=== PATIENT | male | born 1990 | race Caucasian/White ===

== ENCOUNTER → 2018-03-26 09:12 | Outpatient (CLI) | payer MEDICAID, SELFPAY ==
[2018-03-26 10:44] LABS: Free T3, Triiodothyronine Free 3.66 pg/mL (2.77-5.27); Free T4, Direct Thyroxine 0.85 ng/dL (0.78-2.19)
[2018-03-26 10:57] LABS: Thyroid Stimulating Hormone 0.19 uIU/mL (0.47-4.68)
== END ==
PROVIDERS: Visit Provider Internal Medicine
DX: E03.9 Hypothyroidism, unspecified (principal)
CPT/HCPCS: 36415; 84439; 84443; 84481

== ENCOUNTER → 2018-05-21 14:46 | Outpatient (CLI) | payer MEDICAID, SELFPAY ==
[2018-05-21 16:55] LABS: TSH w/ Reflex to FT4 0.58 uIU/mL (0.47-4.68)
== END ==
PROVIDERS: Visit Provider Family Medicine
DX: E03.9 Hypothyroidism, unspecified (principal)
CPT/HCPCS: 36415; 84443

== ENCOUNTER 2018-05-28 14:27 | Emergency (ER) | payer MEDICAID, SELFPAY ==
[2018-05-28 14:34] VITALS: BP 118/78; PULSE 63; RESP 18; TEMP 37; O2SAT 98; BMI 39.1
--- NOTE | 2018-05-28 15:02 | ED_ITS ---
HPI - Chest Pain General Chief Complaint: Chest Pain Stated Complaint: Chest pain, shooting pain down L arm Time Seen by Provider: 05/28/18 14:40 Source: patient Mode of arrival: ambulatory Limitations: no limitations History of Present Illness HPI narrative: 28M with hx of anxiety, depression and hyperlipidemia presents with the chief complaint of a sudden onset sharp and stabbing left shoulder pain that lasted approximately 1 sec. He denies associated symptoms such as dizziness, weakness or lightheadedness. He denies any significant chest pain or shortness of breath. He denies recent travel or injury. He has had no nausea , vomiting or diarrhea. He states that an hour so later he had a brief episode of some pain on his left-sided ribs which lasts a few seconds itself. He denies any ongoing symptoms. He does have a strong family history of premature from coronary artery disease and has a concern that this may be his heart and his visit MD complaint: chest pain Onset (ago): hour(s) Duration: now resolved Onset: during rest Pain location: substernal Severity: mild Quality: sharp Pain radiation: none Relieving factors: nothing Exacerbating factors: nothing Treatments prior to arrival chest pain: none Related Data Home Medications Medication Instructions Recorded Confirmed Little Yellow Pill 1 tab PO DAILY 05/28/18 05/28/18 atorvastatin 80 mg PO QPM 05/28/18 05/28/18 citalopram 40 mg PO QPM 05/28/18 05/28/18 Previous Rx's Medication Instructions Recorded clonazepam 0.5 mg tablet 0.5 mg PO DAILY #30 tab 05/21/18 lactobacillus combination no.8 3 3,000 mmu cells PO DAILY #90 cap 05/21/18 billion cell capsule levothyroxine 88 mcg tablet 88 mcg PO DAILY #90 tab 05/26/18 Allergies Allergy/AdvReac Type Severity Reaction Status Date / Time No Known Drug Allergies Allergy Verified 05/28/18 14:39 Review of Systems Review of Systems All systems reviewed & are unremarkable except as noted in HPI and below Constitutional Denies chills, Denies fever(s), Denies lethargy and Denies weakness Eyes Denies change in vision, Denies eye discharge, Denies irritation and Denies loss of vision ENT Ears, Nose, Mouth, and Throat: Denies change in voice, Denies neck pain and Denies sore throat Cardiovascular Reports chest pain, Denies irregular heart rhythm, Denies lightheadedness, Denies palpitations, Denies dyspnea, Denies dyspnea on exertion and Denies orthopnea Respiratory Denies cough, Denies dyspnea, Denies dyspnea on exertion and Denies wheezing Gastrointestinal Gastrointestinal: Denies abdominal pain, Denies change in bowel habits, Denies diarrhea, Denies nausea and Denies vomiting Genitourinary Denies hematuria, Denies flank pain, Denies urinary incontinence and Denies urinary urgency Musculoskeletal Denies neck pain Integumentary/Breasts Denies pruritus, Denies erythema, Denies rash and Denies wounds Neurologic Denies confusion, Denies loss of vision and Denies weakness Psychiatric Denies anxiety, Denies confusion, Denies depression, Denies homicidal ideation and Denies suicidal ideation Endocrine Denies palpitations Hematologic/Lymphatic Denies easy bruising Allergic/Immunologic Denies wheezing PFSH Medical History Hyperlipidemia Anxiety Hypothyroidism (06/17/17) Morbid obesity with body mass index (BMI) of 40.0 to 44.9 in adult (06/17/17) Family History Other Family history of premature CAD Social History marital status: unmarried,single number of children: 0 education level: high school occupational status: employed Smoking Status: Former smoker alcohol intake: current (rare) substance use type: does not use Exam Narrative Exam Narrative: 28-year-old male resting comfortably in no obvious distress Initial Vital Signs Initial Vital Signs: Vital Signs Temperature 98.6 F 05/28/18 14:34 Pulse Rate 63 05/28/18 14:34 Respiratory Rate 18 05/28/18 14:34 Blood Pressure 118/78 05/28/18 14:34 Pulse Oximetry 98 05/28/18 14:34 Const General: cooperative and well developed Nutritional Appearance: obese Orientation: alert, awake, oriented x3 and not confused HENFL Head: normocephalic and atraumatic Ears: external ears normal and TM's normal bilaterally Nose: external nose normal and No nasal discharge Face and sinus: sinuses nontender, face symmetric, no sinus tenderness and No dry mucous membranes Mouth: oral mucosae normal and moist mucous membranes Teeth and gingiva: dentition normal Throat: tonsils normal and uvula midline Eyes General: appearance normal, both eyes and all related structures Eyelids: eyelids normal Conjunctivae: conjunctivae normal Sclera: sclerae normal Pupils: PERRL EOM: EOM intact bilaterally Chest Chest: normal inspection of the chest Resp Effort & Inspection: normal respiratory effort, able to speak in complete sentences, no respiratory distress and no use of accessory muscles Auscultation: clear to auscultation bilaterally, no rales, no rhonchi and no wheezes Cardio Rate: regular rate Rhythm: regular rhythm Heart Sounds: no click, no gallops, no murmurs and no rubs Pulses: normal peripheral pulses GI Inspection: non-distended Palpation: soft, no hepatosplenomegaly, No guarding, No pulsatile mass and No tender Auscultation: normal bowel sounds Back/Spine/Pelvis Back: No CVA tenderness Cervical Spine: cervical ROM normal and No pain with cervical ROM Thoracic/Lumbar Spine: thoracic and lumbar spine normal to inspection Skin General: no rashes or lesions noted, No jaundice and No petechiae Extrem General: full ROM, no clubbing, cyanosis or edema, no pedal edema and no calf tenderness Course Orders Ordered: ED Orders 05/28/18 15:09 XR chest 2V Stat 05/28/18 15:14 Basic Metabolic Panel Stat Complete Blood Count AUTO DIFF Stat Troponin I Stat Vital Signs - 8 hr 05/28/18 14:34 05/28/18 15:48 Temperature 98.6 F Pulse Rate 63 64 Respiratory Rate 18 16 Blood Pressure 118/78 Blood Pressure [Left Arm] 117/79 Pulse Oximetry 98 98 MDM - Chest Pain Differential Diagnosis Likely pneumothorax, stable angina, unstable angina pectoris, atypical chest pain, st elevation myocardial infarction, chest pain and biliary colic Medical Records Data Attestation: I reviewed the patient's medical records. Lab Data Attestation: I reviewed the patient's lab results. Result diagrams: 05/28/18 15:14 05/28/18 15:14 Lab Results 05/28/18 05/28/18 Range/Units 15:14 15:14 WBC 7.9 (4.5-11.0) X10^3/uL RBC 5.06 (4.5-5.9) X10^6/uL Hgb 15.0 (13.5-17.5) g/dL Hct 43.7 (41-53) % MCV 86.4 (80-100) fL MCH 29.7 (26-34) PG MCHC 34.4 (30-36) % RDW 13.6 (11.6-14.8) % Plt Count 233 (150-400) X10^3/uL Neut % (Auto) 45.8 L (50-75) % Lymph % (Auto) 44.4 H (25-40) % [place] % (Auto) 7.3 (3-14) % Eos % (Auto) 1.7 L (2-4) % Baso % (Auto) 0.8 (0-2) % Neut # (Auto) 3600 (6973-9831) /uL Sodium 143 (137-145) mmol/L Potassium 4.1 (3.4-5.1) mmol/L Chloride 101 (98-107) mmol/L Carbon Dioxide 28 (22-32) mmol/L BUN 13 (9-20) mg/dL Creatinine 0.80 (0.66-1.25) mg/dL Estimated GFR > 60.0 (>60) mL/min BUN/Creatinine Ratio 16.3 (6-22) Glucose 85 (70-100) mg/dL Calcium 9.8 (8.4-10.2) mg/dL Troponin I < 0.012 (0.01-0.034) ng/mL Imaging Data Chest x-ray: Radiologist's impression: [address] [address] XRay Report Signed Patient: Arie Chowdhury RMR#: [id number] : 1990Acct:[id number] Age/Sex: 28 MDate of Service: 05/28/18 Loc: ED Accession Number: [id number] Procedure: XR chest 2V Ordering Provider: Tal Hodge D.O. PROCEDURE: XR CHEST 2V INDICATIONS: chest pain TECHNIQUE: 2 views of the chest were acquired. COMPARISON: None. FINDINGS: Surgical changes and devices: None. Lungs and pleura: Increased lung markings are evident within the bilateral infrahilar regions, which is not definitely confirmed on the lateral view. No lobar consolidation, large effusion, or pneumothorax is evident. Mediastinum: Mediastinal contours are normal. Heart size is normal. Bones and chest wall: No suspicious bony abnormalities. Soft tissues appear unremarkable. IMPRESSION: Prominent infrahilar interstitial markings are of uncertain etiology and may be within normal limits. Please correlate clinically to exclude viral bronchiolitis. Dictated by: Vladimir Zhang M.D. on 05/28/2018 at 14:38 Approved by: Vladimir Zhang M.D. on 05/28/2018 at 14:41 ECG Data Attestation: I personally reviewed and interpreted this ECG as follows: Prior ECG tracings: not available for review Interpretation: EKG is normal sinus rhythm and free of any signs of ischemia or ectopy. MDM Narrative Medical decision making narrative: Ischemic heart disease considered but description of pain is not classic for an ischemic presentation. He describes a sharp and stabbing pain which was very brief and in the absence of other more classic symptoms. His EKG shows no changes, troponin is normal and patient is asymptomatic for duration of his visit. Discharge Plan Departure Patient Disposition: Home Clinical Impression: Atypical chest pain Discharge Date/Time: 05/28/18 16:54 Instructions: DI for Atypical Chest Pain Activity Restrictions/Additional Instructions: *You have been diagnosed with [atypical chest pain ] *What to do: * continue to take medications as directed *Follow up with your primary care provider in 2-3 days, call for an appointment. Let them know you were seen in the Emergency Department and that we ask that you be seen in follow up *Return to ER if you should have any new, worsening or concerning symptoms Prescriptions: No Action levothyroxine 88 mcg tablet 88 mcg PO DAILY Qty: 90 RF: 3 lactobacillus combination no.8 [Adult Probiotic] 3 billion cell capsule 3,000 mmu cells PO DAILY Qty: 90 RF: 0 clonazepam 0.5 mg tablet 0.5 mg PO DAILY Qty: 30 RF: 2 atorvastatin 80 mg tablet 80 mg PO QPM RF: 0 citalopram 40 mg tablet 40 mg PO QPM RF: 0 Little Yellow Pill 1 tab PO DAILY RF: 0 Referrals: Marcus Andrews MD [Primary Care Provider] -
--- NOTE | 2018-05-28 15:09 | DI.RAD.S_ITS ---
PROCEDURE: XR CHEST 2V INDICATIONS: chest pain TECHNIQUE: 2 views of the chest were acquired. COMPARISON: None. FINDINGS: Surgical changes and devices: None. Lungs and pleura: Increased lung markings are evident within the bilateral infrahilar regions, which is not definitely confirmed on the lateral view. No lobar consolidation, large effusion, or pneumothorax is evident. Mediastinum: Mediastinal contours are normal. Heart size is normal. Bones and chest wall: No suspicious bony abnormalities. Soft tissues appear unremarkable. IMPRESSION: Prominent infrahilar interstitial markings are of uncertain etiology and may be within normal limits. Please correlate clinically to exclude viral bronchiolitis. Dictated by: Vladimir Zhang M.D. on 05/28/2018 at 14:38 Approved by: Vladimir Zhang M.D. on 05/28/2018 at 14:41
[2018-05-28 15:48] VITALS: BP 117/79; PULSE 64; RESP 16; O2SAT 98
[2018-05-28 16:06] LABS: Add Manual Diff / Slide Review NO; Basophils Percent Auto 0.8 % (0-2); Eosinophils Percent Auto 1.7 % (2-4); Hematocrit 43.7 % (41-53); Lymphocytes Percent Auto 44.4 % (25-40); Mean Corpuscular HGB Conc 34.4 % (30-36); Mean Corpuscular Hemoglobin 29.7 PG (26-34); Mean Corpuscular Volume 86.4 fL (80-100); Monocytes Percent Auto 7.3 % (3-14); Neutrophils Absolute Auto 3600 /uL (3000-5900); Neutrophils Percent Auto 45.8 % (50-75); Platelet Count 233 X10^3/uL (150-400); Red Blood Cell Count 5.06 X10^6/uL (4.5-5.9); Red Cell Distribution Width 13.6 % (11.6-14.8); White Blood Cell Count 7.9 X10^3/uL (4.5-11.0)
[2018-05-28 16:17] LABS: BUN Creatinine Ratio 16.3 (6-22); Blood Urea Nitrogen 13 mg/dL (9-20); Calcium 9.8 mg/dL (8.4-10.2); Carbon Dioxide 28 mmol/L (22-32); Chloride 101 mmol/L (98-107); Estimated Glomerular Filt Rate > 60.0 mL/min (>60); Glucose 85 mg/dL (70-100); HEMOLYSIS 25 (0-50); Potassium 4.1 mmol/L (3.4-5.1); Sodium 143 mmol/L (137-145)
[2018-05-28 16:29] LABS: Troponin I < 0.012 ng/mL (0.01-0.034)
[2018-05-28 16:52] VITALS: BP 121/76; PULSE 57; RESP 15; TEMP 36.5; O2SAT 97
== END 2018-05-28 16:54 | disposition home or self-care (01) ==
PROVIDERS: Emergency Provider Emergency Medicine; Family Provider Family Medicine; PCP Family Medicine
DX: R07.89 Other chest pain (principal)
CPT/HCPCS: 36591; 71046; 80048; 84484; 85025; 93005; 99282; 99285

== ENCOUNTER → 2018-12-27 07:06 | Outpatient (CLI) | payer OTHER, MEDICAID, SELFPAY ==
[2018-12-27 07:49] LABS: Alanine Aminotransferase 35 IU/L (21-72); Albumin 4.6 g/dL (3.5-5.0); Albumin Globulin Ratio 1.5 (1.0-2.8); Alkaline Phosphatase 61 U/L (38-126); Aspartate Aminotransferase 27 IU/L (17-59); BUN Creatinine Ratio 17.1 (6-22); Bilirubin Total 0.9 mg/dL (0.2-1.3); Blood Urea Nitrogen 12 mg/dL (9-20); Calcium 10.1 mg/dL (8.4-10.2); Carbon Dioxide 31 mmol/L (22-32); Chloride 102 mmol/L (98-107); Cholesterol 225 mg/dL (140-199); Estimated Glomerular Filt Rate > 60.0 mL/min (>60); Glucose 105 mg/dL (70-100); HDL Cholesterol 34 mg/dL (40-60); HEMOLYSIS < 15 (0-50); LDL Cholesterol Calculated 168 mg/dL (<100); Potassium 4.8 mmol/L (3.4-5.1); Sodium 142 mmol/L (137-145); Total Protein 7.6 g/dL (6.3-8.2); Triglycerides 113 mg/dL (35-150)
[2018-12-27 08:54] LABS: Thyroid Stimulating Hormone 0.29 uIU/mL (0.47-4.68)
== END ==
PROVIDERS: PCP Family Medicine; Visit Provider Family Medicine
DX: E03.9 Hypothyroidism, unspecified (principal); E66.01 Morbid (severe) obesity due to excess calories; E78.5 Hyperlipidemia, unspecified; Z68.41 Body mass index [BMI] 40.0-44.9, adult; Z82.49 Family history of ischemic heart disease and other diseases of the circulatory system
CPT/HCPCS: 36415; 80053; 80061; 84443

== ENCOUNTER 2019-02-15 14:22 | Emergency (ER) | payer OTHER, SELFPAY ==
[2019-02-15 14:25] VITALS: BP 144/89; PULSE 70; RESP 23; TEMP 37.2; O2SAT 99; BMI 36.3
[2019-02-15 14:30] VITALS: BP 140/78; PULSE 82; RESP 18; O2SAT 100
--- NOTE | 2019-02-15 14:33 | DI.RAD.S_ITS ---
PROCEDURE: XR CHEST 1V INDICATIONS: Chest pain TECHNIQUE: One view of the chest was acquired. COMPARISON: [facility], CR, XR CHEST 2V, 05/28/2018, 15:19. FINDINGS: Surgical changes and devices: None. Lungs and pleura: Lungs are clear. No pleural effusions or pneumothorax. Mediastinum: Mediastinal contours appear normal. Heart size is normal. Bones and chest wall: No suspicious bony lesions. Overlying soft tissues appear unremarkable. IMPRESSION: 1. No acute cardiopulmonary disease. Dictated by: Jean-Pierre Smith M.D. on 02/15/2019 at 15:24 Approved by: Jean-Pierre Smith M.D. on 02/15/2019 at 15:25
--- NOTE | 2019-02-15 14:40 | ED.CHESTPAIN ---
HPI - Chest Pain <LEELEE Amaya - Last Filed: 02/15/19 21:01> General Chief Complaint: Chest Pain Stated Complaint: heart attack symptoms, sent from pcp Time Seen by Provider: 02/15/19 14:23 Source: patient Mode of arrival: ambulatory Limitations: no limitations History of Present Illness HPI narrative: 28-year-old male with a history of anxiety and high cholesterol, presents emergency department complaining of left-sided chest pain that 3 nights ago which awoke him from his sleep. He states it was a 9/10 sharp and aching pain that lasted a few hours. Denies aggravating or alleviating symptoms. States that he is pain free right now but he called his doctor to explain the symptoms and was told to come to the emergency department immediately. Patient denies any diaphoresis, shortness of breath, chest pain at this time, abdominal pain, nausea, vomiting, change in bowel or bladder problems, or syncope. He also denies fevers or chills. MD complaint: chest pain Duration: now resolved Onset: during rest Pain location: left chest Severity: severe Quality: aching Relieving factors: nothing Exacerbating factors: nothing Related Data Home Medications Medication Instructions Recorded Confirmed Adult Probiotic 3,000 mmu cells PO QPM 02/15/19 02/15/19 Previous Rx's Medication Instructions Recorded atorvastatin 80 mg tablet 80 mg PO QPM #90 tab 07/21/18 citalopram 40 mg tablet 40 mg PO QPM #90 tab 09/09/18 levothyroxine 75 mcg tablet 75 mcg PO DAILY #30 tab 12/27/18 clonazepam 1 mg tablet 1 mg PO DAILY #30 tab 02/08/19 Allergies Allergy/AdvReac Type Severity Reaction Status Date / Time No Known Drug Allergies Allergy Verified 02/15/19 14:29 Review of Systems <LEELEE Amaya - Last Filed: 02/15/19 21:01> Review of Systems REVIEW OF SYSTEMS: GENERAL: Denies fever, chills, malaise, or wt. loss. HENT: No head trauma, hearing loss, rhinorrhea, epistaxis, sinus pressure, sore throat, or dysphagia. EYES: No loss of vision, double vision, eye pain, or irritation. CARDIOVASCULAR: Complains of chest pain 3 days ago, see HPI. Denies palpitations or orthopnea. RESPIRATORY: No shortness of breath, cough, or wheeze. GASTROINTESTINAL: No change in appetite, nausea, vomiting, stool changes, or melena. GENITOURINARY: No flank pain, urinary incontinence, hesitancy, frequency, or dysuria. No vaginal discharge or dyspareunia. MUSCULOSKELETAL: No pain, weakness, or deformities. INTEGUMENTARY: No rash, lesions, or pruritus. NEURO: No numbness, tingling, memory loss, confusion, or headaches. PSYCH: Reports history of anxiety, see HPI. ENDOCRINOLOGY: No hair loss of temperature intolerance. HEMATOLOGY: No easy bruising. LYMPHATIC: No lymphadenopathy. PFSH <LEELEE Amaya - Last Filed: 02/15/19 21:01> Medical History Hyperlipidemia Anxiety Hypothyroidism (06/17/17) Morbid obesity with body mass index (BMI) of 40.0 to 44.9 in adult (06/17/17) Family History Other Family history of premature CAD Social History marital status: unmarried,single number of children: 0 education level: high school occupational status: employed Smoking Status: Former smoker alcohol intake: current (rare) substance use type: does not use Family History Other Family history of premature CAD Social History marital status: unmarried,single number of children: 0 education level: high school occupational status: employed Smoking Status: Former smoker alcohol intake: current (rare) substance use type: does not use Exam <LEELEE Amaya - Last Filed: 02/15/19 21:01> Initial Vital Signs Initial Vital Signs: Vital Signs Temperature 98.9 F 02/15/19 14:25 Pulse Rate 70 02/15/19 14:25 Respiratory Rate 23 02/15/19 14:25 Blood Pressure 144/89 H 02/15/19 14:25 Pulse Oximetry 99 02/15/19 14:25 PHYSICAL EXAMINATION: GENERAL: Patient is an obese male, well groomed, alert, and cooperative. Answers questions promptly and appropriately. Appears anxious during history and exam. Vital signs noted. HENT: Normocephalic, atraumatic.. Pharynx without erythema. EYES: PERRLA, conjunctiva pink, sclera white, no periorbital swelling. LYMPH: No lymphadenopathy. CHEST: Normal to inspection and without deformities. CARDIOVASCULAR: S1 and S2 sounds normal. Regular rate and rhythm, no murmurs, clicks, or bruits. No pedal edema. RESPIRATORY: Normal respiratory rate, trachea midline, airway patent. No stridor, nasal flaring or accessory muscle use. Lungs are clear in all [place] without wheeze, rhonchi, or crackles. GASTROINTESTINAL: Bowel sounds normoactive. Abdomen is soft and non-tender. No organomegaly. MUSCULOSKELETAL: Normal gait and coordination. Equal tone and mass bilaterally. No spinal tenderness or deformities. EXTREMITIES: CMS intact. Moves all extremities. SKIN: Warm, dry, soft, appropriate color for ethnicity. No lesions, rashes, or wounds. NEURO: Alert and Oriented X 3. Good coordination. No ataxia, or sensory deficits, or cognitive issues. PSYCH: Anxious affect. <Tal Hodge DO - Last Filed: 02/19/19 04:03> Initial Vital Signs Initial Vital Signs: Vital Signs Temperature 98.9 F 02/15/19 14:25 Pulse Rate 70 02/15/19 14:25 Respiratory Rate 23 02/15/19 14:25 Blood Pressure 144/89 H 02/15/19 14:25 Pulse Oximetry 99 02/15/19 14:25 Scores <LEELEE Amaya - Last Filed: 02/15/19 21:01> HEART Score Heart Score history: Slightly Suspicious Heart Score EKG: Normal Heart Score Age: < 45 years old Heart Score risk factors: 1-2 risk factors Heart Score troponin: < or = to normal limit Heart Score Total: 1 Course <LEELEE Amaya - Last Filed: 02/15/19 21:01> Course Narrative: Throughout the entire emergency department stay, patient continued to deny chest pain or shortness of breath. She was up walking around in going to the bathroom, continued to deny chest pain symptoms. Orders Ordered: ED Orders 02/15/19 14:26 EKG-12 Lead Stat 02/15/19 14:33 XR chest 1V Stat 02/15/19 14:50 Complete Blood Count AUTO DIFF Stat Comprehensive Metabolic Panel Stat Lipase Stat Prothrombin Time INR Stat Troponin & CK Cardiac Panel Stat Consultations Consultation #1: Patient staffed with Dr. Hodge. Vital Signs - 8 hr 02/15/19 14:25 02/15/19 14:30 02/15/19 15:00 Temperature 98.9 F Pulse Rate 70 82 67 Respiratory Rate 23 18 18 Blood Pressure 144/89 H Blood Pressure [Left Arm] 140/78 122/93 H Pulse Oximetry 99 100 99 02/15/19 15:30 Temperature Pulse Rate 68 Respiratory Rate 16 Blood Pressure Blood Pressure [Left Arm] 121/78 Pulse Oximetry 98 <Tal Hodge DO - Last Filed: 02/19/19 04:03> Orders Ordered: ED Orders 02/15/19 14:26 EKG-12 Lead Stat 02/15/19 14:33 XR chest 1V Stat 02/15/19 14:50 Complete Blood Count AUTO DIFF Stat Comprehensive Metabolic Panel Stat Lipase Stat Prothrombin Time INR Stat Troponin & CK Cardiac Panel Stat Vital Signs - 8 hr 02/15/19 14:25 02/15/19 14:30 02/15/19 15:00 Temperature 98.9 F Pulse Rate 70 82 67 Respiratory Rate 23 18 18 Blood Pressure 144/89 H Blood Pressure [Left Arm] 140/78 122/93 H Pulse Oximetry 99 100 99 02/15/19 15:30 Temperature Pulse Rate 68 Respiratory Rate 16 Blood Pressure Blood Pressure [Left Arm] 121/78 Pulse Oximetry 98 MDM - Chest Pain <LEELEE Amaya - Last Filed: 02/15/19 21:01> Medical Records Data Attestation: I reviewed the patient's medical records. Lab Data Attestation: I reviewed the patient's lab results. Result diagrams: 02/15/19 14:50 02/15/19 14:50 Lab Results 02/15/19 02/15/19 02/15/19 Range/Units 14:50 14:50 14:50 WBC 7.3 (4.5-11.0) X10^3/uL RBC 5.31 (4.5-5.9) X10^6/uL Hgb 15.4 (13.5-17.5) g/dL Hct 46.3 (41-53) % MCV 87.3 (80-100) fL MCH 29.1 (26-34) PG MCHC 33.3 (30-36) % RDW 13.1 (11.6-14.8) % Plt Count 223 (150-400) X10^3/uL Neut % (Auto) 44.9 L (50-75) % Lymph % (Auto) 45.1 H (25-40) % Cameron % (Auto) 7.4 (3-14) % Eos % (Auto) 2.1 (2-4) % Baso % (Auto) 0.5 (0-2) % Neut # (Auto) 3300 (9352-0924) /uL Lymph # (Auto) 3300 (9332-3750) /uL Cameron # (Auto) 500 (0-900) /uL Eos # (Auto) 200 (0-450) /uL Baso # (Auto) 0 (0-100) /uL PT 11.8 (10.1-12.7) SECONDS INR 1.0 (0.9-1.3) Sodium 141 (137-145) mmol/L Potassium 4.1 (3.4-5.1) mmol/L Chloride 102 (98-107) mmol/L Carbon Dioxide 27 (22-32) mmol/L BUN 14 (9-20) mg/dL Creatinine 0.80 (0.66-1.25) mg/dL Estimated GFR > 60.0 (>60) mL/min BUN/Creatinine Ratio 17.5 (6-22) Glucose 99 (70-100) mg/dL Calcium 10.3 H (8.4-10.2) mg/dL Total Bilirubin 1.1 (0.2-1.3) mg/dL AST 27 (17-59) IU/L ALT 39 (21-72) IU/L Alkaline Phosphatase 73 (38-126) U/L Total Creatine Kinase 88 (55-170) U/L CK-MB (CK-2) TNP CK-MB (CK-2) Rel Index TNP Troponin I < 0.012 (0.01-0.034) ng/mL Total Protein 8.0 (6.3-8.2) g/dL Albumin 4.9 (3.5-5.0) g/dL Globulin 3.1 (1.7-4.1) g/dL Albumin/Globulin Ratio 1.6 (1.0-2.8) Lipase 95 (23-300) U/L Imaging Data Chest x-ray: Radiologist's impression: [place] [id number] [place] [id number] XRay Report Signed Patient: Arie Chowdhury RMR#: [id number] : 1990Acct:[id number] Age/Sex: 28 / MDate of Service: 02/15/19 Loc: ED Accession Number: [id number] Procedure: XR chest 1V Ordering Provider: Maira Leblanc PROCEDURE: XR CHEST 1V INDICATIONS: Chest pain TECHNIQUE: One view of the chest was acquired. COMPARISON: [facility], [place], XR CHEST 2V, 05/28/2018, 15:19. FINDINGS: Surgical changes and devices: None. Lungs and pleura: Lungs are clear. No pleural effusions or pneumothorax. Mediastinum: Mediastinal contours appear normal. Heart size is normal. Bones and chest wall: No suspicious bony lesions. Overlying soft tissues appear unremarkable. IMPRESSION: 1. No acute cardiopulmonary disease. Dictated by: Jean-Pierre Smith M.D. on 02/15/2019 at 15:24 Approved by: Jean-Pierre Smith M.D. on 02/15/2019 at 15:25 ECG Data Interpretation: Normal sinus rhythm, rate 78, OH interval 132, QTC 409, no ectopy, no ST depression or ST elevation, no abnormal T-wave inversion. EKG was also viewed by Dr. Hodge. MDM Narrative Medical decision making narrative: Patient has been worked up for this in the past. Differential includes acute coronary syndrome (less likely due to normal troponin, unremarkable EKG, unremarkable chest x-ray, resolution of symptoms over short amount of time, no other systemic symptoms), anxiety (most likely due to history of anxiety, multiple cardiac workups in the past, history of panic attack, resolution of symptoms, lack of signs of acute coronary syndrome, patient presents with significant anxiety to the emergency department), musculoskeletal pain (less likely due to lack of reproducibility), gastrointestinal issues (less likely due to lack of nausea, vomiting, or changes in bowel habits). Strict return precautions given and follow-up instructions discussed. In consider stress test for further workup if indicated and or alteration of anxiety medications. I do not feel like this patient needs to be admitted as he remains low risk--- his workup was negative, his heart score was 1, and he is ability to return emergency department if symptoms worsen. <Tal Hodge DO - Last Filed: 02/19/19 04:03> Lab Data Lab Results 02/15/19 02/15/19 02/15/19 Range/Units 14:50 14:50 14:50 WBC 7.3 (4.5-11.0) X10^3/uL RBC 5.31 (4.5-5.9) X10^6/uL Hgb 15.4 (13.5-17.5) g/dL Hct 46.3 (41-53) % MCV 87.3 (80-100) fL MCH 29.1 (26-34) PG MCHC 33.3 (30-36) % RDW 13.1 (11.6-14.8) % Plt Count 223 (150-400) X10^3/uL Neut % (Auto) 44.9 L (50-75) % Lymph % (Auto) 45.1 H (25-40) % Cameron % (Auto) 7.4 (3-14) % Eos % (Auto) 2.1 (2-4) % Baso % (Auto) 0.5 (0-2) % Neut # (Auto) 3300 (3672-4653) /uL Lymph # (Auto) 3300 (7705-9639) /uL Cameron # (Auto) 500 (0-900) /uL Eos # (Auto) 200 (0-450) /uL Baso # (Auto) 0 (0-100) /uL PT 11.8 (10.1-12.7) SECONDS INR 1.0 (0.9-1.3) Sodium 141 (137-145) mmol/L Potassium 4.1 (3.4-5.1) mmol/L Chloride 102 (98-107) mmol/L Carbon Dioxide 27 (22-32) mmol/L BUN 14 (9-20) mg/dL Creatinine 0.80 (0.66-1.25) mg/dL Estimated GFR > 60.0 (>60) mL/min BUN/Creatinine Ratio 17.5 (6-22) Glucose 99 (70-100) mg/dL Calcium 10.3 H (8.4-10.2) mg/dL Total Bilirubin 1.1 (0.2-1.3) mg/dL AST 27 (17-59) IU/L ALT 39 (21-72) IU/L Alkaline Phosphatase 73 (38-126) U/L Total Creatine Kinase 88 (55-170) U/L CK-MB (CK-2) TNP CK-MB (CK-2) Rel Index TNP Troponin I < 0.012 (0.01-0.034) ng/mL Total Protein 8.0 (6.3-8.2) g/dL Albumin 4.9 (3.5-5.0) g/dL Globulin 3.1 (1.7-4.1) g/dL Albumin/Globulin Ratio 1.6 (1.0-2.8) Lipase 95 (23-300) U/L Discharge Plan Departure Patient Disposition: Home Clinical Impression: Chest pain Qualifiers: Chest pain type: unspecified Qualified Code(s): R07.9 - Chest pain, unspecified Discharge Date/Time: 02/15/19 17:14 Interventions: ED Discharge Assessment Last Done: 02/15/19 17:13 Instructions: DI for Chest Pain Activity Restrictions/Additional Instructions: Thank you for entrusting me with your care today. As discussed, your test results did not show any concerning findings. Please follow up with her primary care provider in the next few weeks to discuss further testing if indicated. Return to the emergency department if you have severe chest pain, shortness of breath, excessive sweating, high fevers, uncontrollable vomiting, or syncope. Prescriptions: No Action levothyroxine 75 mcg tablet 75 mcg PO DAILY Qty: 30 RF: 3 atorvastatin 80 mg tablet 80 mg PO QPM Qty: 90 RF: 3 citalopram 40 mg tablet 40 mg PO QPM Qty: 90 RF: 0 clonazepam 1 mg tablet 1 mg PO DAILY Qty: 30 RF: 0 Adult Probiotic 3 billion cell capsule 3,000 mmu cells PO QPM RF: 0 Referrals: Catherine Rodriguez DO [Primary Care Provider] - <Tal Hodge DO - Last Filed: 02/19/19 04:03> Cosign ED Attending Andreaature Attestation: I was immediately available in the department for consultation. Documentation has been reviewed. I agree with assessment and plan.
[2019-02-15 15:00] VITALS: BP 122/93; PULSE 67; RESP 18; O2SAT 99
--- NOTE | 2019-02-15 15:04 | PC.NURSE ---
hx of anxiety, reports, 3 days ago, pt developed left chest discomfort, radiating to his arm. pain free at this time, no symptom at this time, anxious, requesting mother and grandfather at bs.
[2019-02-15 15:15] LABS: Add Manual Diff / Slide Review NO; Basophils Absolute Auto 0 /uL (0-100); Basophils Percent Auto 0.5 % (0-2); Eosinophils Absolute Auto 200 /uL (0-450); Eosinophils Percent Auto 2.1 % (2-4); Hematocrit 46.3 % (41-53); Hemoglobin 15.4 g/dL (13.5-17.5); Lymphocytes Absolute Auto 3300 /uL (1100-4500); Lymphocytes Percent Auto 45.1 % (25-40); Mean Corpuscular HGB Conc 33.3 % (30-36); Mean Corpuscular Hemoglobin 29.1 PG (26-34); Mean Corpuscular Volume 87.3 fL (80-100); Monocytes Absolute Auto 500 /uL (0-900); Monocytes Percent Auto 7.4 % (3-14); Neutrophils Absolute Auto 3300 /uL (1500-7000); Neutrophils Percent Auto 44.9 % (50-75); Platelet Count 223 X10^3/uL (150-400); Red Blood Cell Count 5.31 X10^6/uL (4.5-5.9); Red Cell Distribution Width 13.1 % (11.6-14.8); White Blood Cell Count 7.3 X10^3/uL (4.5-11.0)
[2019-02-15 15:19] LABS: Prothrombin Time 11.8 SECONDS (10.1-12.7)
[2019-02-15 15:24] LABS: Alanine Aminotransferase 39 IU/L (21-72); Albumin 4.9 g/dL (3.5-5.0); Albumin Globulin Ratio 1.6 (1.0-2.8); Alkaline Phosphatase 73 U/L (38-126); Aspartate Aminotransferase 27 IU/L (17-59); BUN Creatinine Ratio 17.5 (6-22); Bilirubin Total 1.1 mg/dL (0.2-1.3); Blood Urea Nitrogen 14 mg/dL (9-20); Calcium 10.3 mg/dL (8.4-10.2); Carbon Dioxide 27 mmol/L (22-32); Chloride 102 mmol/L (98-107); Creatine Kinase 88 U/L (55-170); Estimated Glomerular Filt Rate > 60.0 mL/min (>60); Globulin 3.1 g/dL (1.7-4.1); Glucose 99 mg/dL (70-100); HEMOLYSIS < 15 (0-50); Lipase 95 U/L (23-300); Potassium 4.1 mmol/L (3.4-5.1); Sodium 141 mmol/L (137-145)
[2019-02-15 15:30] VITALS: BP 121/78; PULSE 68; RESP 16; O2SAT 98
[2019-02-15 15:35] LABS: Troponin I < 0.012 ng/mL (0.01-0.034)
== END 2019-02-15 17:14 | disposition home or self-care (01) ==
PROVIDERS: Emergency Provider Nurse Practitioner; PCP Family Medicine
DX: R07.9 Chest pain, unspecified (principal)
CPT/HCPCS: 71045; 80053; 82550; 83690; 84484; 85025; 85610; 93005; 99283; 99285

== ENCOUNTER → 2019-03-09 15:46 | Outpatient (CLI) | payer OTHER, SELFPAY ==
[2019-03-09 17:59] LABS: Thyroid Stimulating Hormone 0.27 uIU/mL (0.47-4.68)
== END ==
PROVIDERS: PCP Family Medicine; Visit Provider Family Medicine
DX: E03.9 Hypothyroidism, unspecified (principal); E66.01 Morbid (severe) obesity due to excess calories; F41.9 Anxiety disorder, unspecified; Z68.41 Body mass index [BMI] 40.0-44.9, adult
CPT/HCPCS: 36415; 84443

== ENCOUNTER → 2019-04-18 08:08 | Outpatient (CLI) | payer OTHER, SELFPAY ==
[2019-04-18 09:57] LABS: TSH w/ Reflex to FT4 0.41 uIU/mL (0.47-4.68)
== END ==
PROVIDERS: PCP Family Medicine; Visit Provider Family Medicine
DX: E03.9 Hypothyroidism, unspecified (principal)
CPT/HCPCS: 36415; 84439; 84443

== ENCOUNTER → 2019-05-23 07:37 | Outpatient (CLI) | payer OTHER, SELFPAY ==
[2019-05-23 09:16] LABS: TSH w/ Reflex to FT4 0.45 uIU/mL (0.47-4.68)
[2019-05-23 09:55] LABS: Free T4, Direct Thyroxine 0.71 ng/dL (0.78-2.19)
== END ==
PROVIDERS: PCP Family Medicine; Visit Provider Family Medicine
DX: E03.9 Hypothyroidism, unspecified (principal)
CPT/HCPCS: 36415; 84439; 84443

== ENCOUNTER → 2019-05-24 13:10 | Outpatient (CLI) | payer OTHER, SELFPAY | PROVIDERS: PCP Family Medicine; Visit Provider Family Medicine | DX: E03.9 Hypothyroidism, unspecified (principal) | CPT/HCPCS: 84481 ==

== ENCOUNTER → 2019-07-04 15:29 | Outpatient (CLI) | payer OTHER, SELFPAY ==
[2019-07-04 16:10] LABS: Influenza A - CEPHEID Flu A NEGATIVE (NEGATIVE); Influenza B - CEPHEID Flu B NEGATIVE (NEGATIVE)
== END ==
PROVIDERS: PCP Family Medicine; Visit Provider Physician Assistant
DX: R68.89 Other general symptoms and signs (principal)
CPT/HCPCS: 87502

== ENCOUNTER → 2019-07-26 08:09 | Outpatient (CLI) | payer OTHER, SELFPAY ==
[2019-07-26 10:20] LABS: TSH w/ Reflex to FT4 1.02 uIU/mL (0.47-4.68)
== END ==
PROVIDERS: PCP Family Medicine; Visit Provider Family Medicine
DX: E03.9 Hypothyroidism, unspecified (principal)
CPT/HCPCS: 36415; 84443

== ENCOUNTER → 2020-02-28 07:14 | Outpatient (CLI) | payer OTHER, SELFPAY ==
[2020-02-28 09:07] LABS: Alanine Aminotransferase 45 IU/L (<50); Albumin 4.5 g/dL (3.5-5.0); Albumin Globulin Ratio 1.6 (1.0-2.8); Alkaline Phosphatase 72 U/L (38-126); Aspartate Aminotransferase 35 IU/L (17-59); BUN Creatinine Ratio 21.1 (6-22); Bilirubin Total 0.9 mg/dL (0.2-1.3); Blood Urea Nitrogen 15 mg/dL (9-20); Calcium 10.1 mg/dL (8.4-10.2); Carbon Dioxide 26 mmol/L (22-32); Chloride 106 mmol/L (98-107); Cholesterol 242 mg/dL (140-199); Estimated Glomerular Filt Rate > 60.0 mL/min (>60); Globulin 2.8 g/dL (1.7-4.1); Glucose 99 mg/dL (70-100); HDL Cholesterol 36 mg/dL (40-60); HEMOLYSIS < 15 (0-50); LDL Cholesterol Calculated 183 mg/dL (<100); Potassium 4.4 mmol/L (3.4-5.1); Sodium 138 mmol/L (137-145); Total Protein 7.3 g/dL (6.3-8.2); Triglycerides 116 mg/dL (35-150)
[2020-02-28 09:31] LABS: TSH w/ Reflex to FT4 1.01 uIU/mL (0.47-4.68)
== END ==
PROVIDERS: PCP Family Medicine; Referring Provider Family Medicine; Visit Provider Family Medicine
DX: E03.9 Hypothyroidism, unspecified (principal); E78.5 Hyperlipidemia, unspecified
CPT/HCPCS: 36415; 80053; 80061; 84443

== ENCOUNTER 2020-06-12 14:36 | Emergency (ER) | payer OTHER, SELFPAY ==
[2020-06-12] VITALS (7 sets, daily range): BP systolic 111–138; BP diastolic 56–74; PULSE 52–61; RESP 17–23; O2SAT 96–99
--- NOTE | 2020-06-12 15:05 | ED_ITS ---
HPI - Chest Pain <LEELEE Amaya - Last Filed: 06/12/20 18:27> General Chief Complaint: Chest Pain Stated Complaint: CHEST PAIN Time Seen by Provider: 06/12/20 14:51 Source: patient Mode of arrival: Ambulatory History of Present Illness HPI narrative: 30yo male with history of HLD and anxiety, presents to the emergency department for substernal constant chest pain that started this morning around 1140AM. He states he was getting other cardiac at a work noticed a dull aching sensation. He states the pain has improved and is currently a 4/10. He denies any alleviating or aggravating factors. Denies taking anything for pain. Patient states his Klonopin was recently reduced 2 weeks ago by his PCP for anxiety. He denies any other symptoms such as cough, shortness of breath, dizziness, nausea, vomiting, diarrhea, or any other concerns. He denies any significant family history or personal cardiac history. Related Data Home Medications Medication Instructions Recorded Confirmed Adult Probiotic 3,000 mmu cells PO QPM 02/15/19 05/29/20 Previous Rx's Medication Instructions Recorded levothyroxine 25 mcg tablet 25 mcg PO DAILY #30 tab 09/22/19 atorvastatin 80 mg tablet 80 mg PO QPM #90 tab 01/30/20 sertraline 100 mg tablet 100 mg PO DAILY #60 tab 02/28/20 clonazepam 0.5 mg tablet 0.75 mg PO DAILY #45 tab 05/29/20 Allergies Allergy/AdvReac Type Severity Reaction Status Date / Time No Known Drug Allergies Allergy Verified 05/29/20 11:38 Review of Systems <LEELEE Amaya - Last Filed: 06/12/20 18:27> Review of Systems Narrative: REVIEW OF SYSTEMS: GENERAL: Denies fever. HENT: No head trauma. CARDIOVASCULAR: No chest pain. RESPIRATORY: No shortness of breath or cough. GASTROINTESTINAL: No nausea, vomiting, diarrhea, or constipation. GENITOURINARY: No flank pain. MUSCULOSKELETAL: No injury. INTEGUMENTARY: No rash, lesions, or pruritus. Patient History <LEELEE Amaya - Last Filed: 06/12/20 18:27> Medical History Hyperlipidemia Hypothyroidism (06/17/17) Morbid obesity with BMI of 40.0-44.9, adult Family History Other Family history of premature CAD Social History marital status: unmarried,single number of children: 0 education level: high school occupational status: employed Smoking Status: Former smoker alcohol intake: current (rare) substance use type: does not use Smoking Status: Former smoker alcohol intake frequency: 0-2 drinks per day Substance Use Type: does not use Exam <LEELEE Amaya - Last Filed: 06/12/20 18:27> Initial Vital Signs Initial Vital Signs: Vital Signs Pulse Rate 61 06/12/20 14:44 Respiratory Rate 23 06/12/20 14:44 Pulse Oximetry 98 06/12/20 14:44 PHYSICAL EXAMINATION: GENERAL: Well groomed, 30-year-old male who appears anxious. HENT: Normocephalic, atraumatic. Ear canals patent. Oral mucosa is pink and moist. EYES: Conjunctiva pink, sclera white, no periorbital swelling. CHEST: Normal to inspection and without deformities. No pain to palpation. CARDIOVASCULAR: S1 and S2 sounds normal. Regular rate and rhythm, no murmurs, clicks, or bruits. No pedal edema. RESPIRATORY: Normal respiratory rate, trachea midline, airway patent. No stridor, nasal flaring or accessory muscle use. Lungs are clear in all dumont without wheeze, rhonchi, or crackles. GASTROINTESTINAL: Bowel sounds normoactive. Abdomen is soft and non-tender. No organomegaly. MUSCULOSKELETAL: Normal gait and coordination. Equal tone and mass bilaterally. EXTREMITIES: CMS intact. Moves all extremities. SKIN: Warm, dry, soft, appropriate color for ethnicity. No lesions, rashes, or wounds. NEURO: Alert and Oriented X 3. Good coordination. No ataxia, or sensory deficits, or cognitive issues. PSYCH: Anxious affect. <Jan Akers DO - Last Filed: 06/12/20 18:39> Initial Vital Signs Initial Vital Signs: Vital Signs Pulse Rate 61 06/12/20 14:44 Respiratory Rate 23 06/12/20 14:44 Pulse Oximetry 98 06/12/20 14:44 Course <LEELEE Amaya - Last Filed: 06/12/20 18:27> Course Course Narrative: Patient stated he feels relieved that laboratory tests are negative. Father at bedside, agrees with discharge plan and follow-up. Orders Ordered: ED Orders 06/12/20 14:45 EKG-12 Lead Routine 06/12/20 15:03 XR chest 1V Stat 06/12/20 15:30 Complete Blood Count AUTO DIFF Stat Comprehensive Metabolic Panel Stat Lipase Stat Troponin & CK Cardiac Panel Stat Discontinued Medications Aspirin (Aspirin 81 Mg Chew Tab) 324 mg PO NOW ONE Stop: 06/12/20 15:04 Last Admin: 06/12/20 15:21 Dose: 324 mg Documented by: KATEY Sodium Chloride (Normal Saline 0.9%) 1,000 mls @ 150 mls/hr IV CONT DAMIAN Last Admin: 06/12/20 16:56 Dose: Not Given Documented by: KATEY Consultations Consultation #1: Patient staffed with Dr. Akers discussed test, test results, plan of care. Vital Signs Vital signs: Vital Signs - 8 hr 06/12/20 14:44 06/12/20 14:45 06/12/20 15:00 Pulse Rate 61 60 61 Respiratory Rate 23 22 17 Blood Pressure 138/74 133/68 Pulse Oximetry 98 99 98 06/12/20 15:30 06/12/20 15:31 06/12/20 16:00 Pulse Rate 55 L 54 L 52 L Respiratory Rate 18 21 18 Blood Pressure 124/71 Pulse Oximetry 96 96 96 06/12/20 16:01 Pulse Rate 59 L Respiratory Rate 20 Blood Pressure 111/56 L Pulse Oximetry 97 <Jan Akers DO - Last Filed: 06/12/20 18:39> Orders Ordered: ED Orders 06/12/20 14:45 EKG-12 Lead Routine 06/12/20 15:03 XR chest 1V Stat 06/12/20 15:30 Complete Blood Count AUTO DIFF Stat Comprehensive Metabolic Panel Stat Lipase Stat Troponin & CK Cardiac Panel Stat Discontinued Medications Aspirin (Aspirin 81 Mg Chew Tab) 324 mg PO NOW ONE Stop: 06/12/20 15:04 Last Admin: 06/12/20 15:21 Dose: 324 mg Documented by: KATEY Sodium Chloride (Normal Saline 0.9%) 1,000 mls @ 150 mls/hr IV CONT DAMIAN Last Admin: 06/12/20 16:56 Dose: Not Given Documented by: KATEY Vital Signs Vital signs: Vital Signs - 8 hr 06/12/20 14:44 06/12/20 14:45 06/12/20 15:00 Pulse Rate 61 60 61 Respiratory Rate 23 22 17 Blood Pressure 138/74 133/68 Pulse Oximetry 98 99 98 06/12/20 15:30 06/12/20 15:31 06/12/20 16:00 Pulse Rate 55 L 54 L 52 L Respiratory Rate 18 21 18 Blood Pressure 124/71 Pulse Oximetry 96 96 96 06/12/20 16:01 Pulse Rate 59 L Respiratory Rate 20 Blood Pressure 111/56 L Pulse Oximetry 97 MDM - Chest Pain <LEELEE Amaya - Last Filed: 06/12/20 18:27> Medical Records Data Attestation: I reviewed the patient's medical records. Lab Data Attestation: I reviewed the patient's lab results. Result diagrams: 06/12/20 15:30 06/12/20 15:30 Labs: Lab Results 06/12/20 06/12/20 Range/Units 15:30 15:30 WBC 6.8 (4.5-11.0) X10^3/uL RBC 5.20 (4.5-5.9) X10^6/uL Hgb 15.2 (13.5-17.5) g/dL Hct 44.7 (41-53) % MCV 86.0 (80-100) fL MCH 29.2 (26-34) PG MCHC 33.9 (30-36) % RDW 13.8 (11.6-14.8) % Plt Count 217 (150-400) X10^3/uL Neut % (Auto) 47.3 L (50-75) % Lymph % (Auto) 42.2 H (25-40) % [place] % (Auto) 8.0 (3-14) % Eos % (Auto) 2.1 (2-4) % Baso % (Auto) 0.4 (0-2) % Neut # (Auto) 3200 (3177-7384) /uL Lymph # (Auto) 2900 (7959-9226) /uL [place] # (Auto) 500 (0-900) /uL Eos # (Auto) 100 (0-450) /uL Baso # (Auto) 0 (0-100) /uL Sodium 139 (137-145) mmol/L Potassium 4.0 (3.4-5.1) mmol/L Chloride 103 (98-107) mmol/L Carbon Dioxide 31 (22-32) mmol/L BUN 12 (9-20) mg/dL Creatinine 0.77 (0.66-1.25) mg/dL Estimated GFR > 60.0 (>60) mL/min BUN/Creatinine Ratio 15.6 (6-22) Glucose 92 (70-100) mg/dL Calcium 10.2 (8.4-10.2) mg/dL Total Bilirubin 0.9 (0.2-1.3) mg/dL AST 33 (17-59) IU/L ALT 39 (<50) IU/L Alkaline Phosphatase 79 (38-126) U/L Total Creatine Kinase 128 (55-170) U/L CK-MB (CK-2) 1.47 (<2.37) ng/mL CK-MB (CK-2) Rel Index 1.1 L (1.5-5.0) % Troponin I < 0.012 (0.01-0.034) ng/mL Total Protein 8.6 H (6.3-8.2) g/dL Albumin 4.8 (3.5-5.0) g/dL Globulin 3.8 (1.7-4.1) g/dL Albumin/Globulin Ratio 1.3 (1.0-2.8) Lipase 96 (23-300) U/L Imaging Data Chest x-ray: Radiologist's Impression: [address] [id number] ReportSigned Patient: Arie Chowdhury RMR#: [id number]: 1990Acct:[id number]/Sex: te of Service: 06/12/20Loc: EDAccession Number: [id number] Procedure: XR chest 1V Ordering Provider: Maira Leblanc PROCEDURE: XR CHEST 1V INDICATIONS: chest pain TECHNIQUE: One view of the chest was acquired. COMPARISON: [facility], CR, XR CHEST 1V, 02/15/2019, 14:38. [facility], CR, XR CHEST 2V, 05/28/2018, 15:19. FINDINGS: Surgical changes and devices: None. Lungs and pleura: Lungs are clear. No pleural effusions or pneumothorax. Mediastinum: Mediastinal contours appear normal. Heart size is normal. Bones and chest wall: No suspicious bony lesions. Overlying soft tissues appear unremarkable. IMPRESSION: Normal for age, source of current chest pain symptoms is not seen. Dictated by: Dago Martinez M.D. on 06/12/2020 at 15:31 Approved by: Dago Martinez M.D. on 06/12/2020 at 15:31 ECG Data Interpretation: 1445: Sinus rhythm, rate 57, FL interval of 142, QTC 388. No ST elevation or ST depression. T-wave inversion noted in V1 and V2. EKG also viewed by Dr. Akers per protocol. [facility] Narrative Medical decision making narrative: 30-year-old male presents emergency department with constant chest pain. I am unsure the exact cause of patient's chest pain at this time, differential includes musculoskeletal versus anxiety versus noncardiac related chest pain. Less likely ACS given patient's heart score is 1, EKG, chest x-ray, and troponin within normal limits. Only 1 troponin was performed at this time as patient's chest pain has been ongoing since 11 30 a.m.. Lack of other concerning symptoms such as shortness of breath or diaphoresis. Less likely PE given lack of symptoms such as shortness of breath. No tachycardia, tachypnea, or dyspnea. No hypoxia. Less likely abdominal etiology given lack of abdominal pain on upon examination, lack of nausea or vomiting. Less likely pulmonary etiology such as pneumonia or viral illness due to lack of other symptoms such as cough, rhinitis, or shortness of breath. Patient was encouraged to follow up with PCP for further evaluation and testing. ED precautions given for new or worsening symptoms. Patient agreed to plan of care and verbalized understanding. <Jan Akers, DO - Last Filed: 06/12/20 18:39> Lab Data Labs: Lab Results 06/12/20 06/12/20 Range/Units 15:30 15:30 WBC 6.8 (4.5-11.0) X10^3/uL RBC 5.20 (4.5-5.9) X10^6/uL Hgb 15.2 (13.5-17.5) g/dL Hct 44.7 (41-53) % MCV 86.0 (80-100) fL MCH 29.2 (26-34) PG MCHC 33.9 (30-36) % RDW 13.8 (11.6-14.8) % Plt Count 217 (150-400) X10^3/uL Neut % (Auto) 47.3 L (50-75) % Lymph % (Auto) 42.2 H (25-40) % [place] % (Auto) 8.0 (3-14) % Eos % (Auto) 2.1 (2-4) % Baso % (Auto) 0.4 (0-2) % Neut # (Auto) 3200 (9611-9613) /uL Lymph # (Auto) 2900 (1773-0633) /uL [place] # (Auto) 500 (0-900) /uL Eos # (Auto) 100 (0-450) /uL Baso # (Auto) 0 (0-100) /uL Sodium 139 (137-145) mmol/L Potassium 4.0 (3.4-5.1) mmol/L Chloride 103 (98-107) mmol/L Carbon Dioxide 31 (22-32) mmol/L BUN 12 (9-20) mg/dL Creatinine 0.77 (0.66-1.25) mg/dL Estimated GFR > 60.0 (>60) mL/min BUN/Creatinine Ratio 15.6 (6-22) Glucose 92 (70-100) mg/dL Calcium 10.2 (8.4-10.2) mg/dL Total Bilirubin 0.9 (0.2-1.3) mg/dL AST 33 (17-59) IU/L ALT 39 (<50) IU/L Alkaline Phosphatase 79 (38-126) U/L Total Creatine Kinase 128 (55-170) U/L CK-MB (CK-2) 1.47 (<2.37) ng/mL CK-MB (CK-2) Rel Index 1.1 L (1.5-5.0) % Troponin I < 0.012 (0.01-0.034) ng/mL Total Protein 8.6 H (6.3-8.2) g/dL Albumin 4.8 (3.5-5.0) g/dL Globulin 3.8 (1.7-4.1) g/dL Albumin/Globulin Ratio 1.3 (1.0-2.8) Lipase 96 (23-300) U/L Discharge Plan Departure Patient Disposition: Home Clinical Impression: Atypical chest pain Instructions: DI for Atypical Chest Pain Activity Restrictions/Additional Instructions: Thank you for entrusting me with your care today. As discussed, your laboratory work, chest x-ray, EKG are non-remarkable. I am unsure the exact cause of your chest pain. Try to decrease consuming spicy foods. I do recommend following up with your primary care provider in the next week for further evaluation and further testing. Return emergency department for any new or worsening symptoms. Prescriptions: No Action clonazepam 0.5 mg tablet 0.75 mg PO DAILY Qty: 45 RF: 0 sertraline 100 mg tablet 100 mg PO DAILY Qty: 60 RF: 3 levothyroxine 25 mcg tablet 25 mcg PO DAILY Qty: 30 RF: 11 atorvastatin 80 mg tablet 80 mg PO QPM Qty: 90 RF: 1 Adult Probiotic 3 billion cell capsule 3,000 mmu cells PO QPM RF: 0 Referrals: Catherine Rodriguez DO [Primary Care Provider] - <Jan Akers DO - Last Filed: 06/12/20 18:39> Cosign ED Attending Cosignature Attestation: Dr Akers Co-Sign Statement: I was available for consultation during this patient's emergency department visit. This chart is signed by myself for administrative purposes only. I did not have direct contact with this patient during this visit. They were seen independently by the APC.
[2020-06-12] MEDS: ASPIRIN 81 MG CHEW TAB 324 MG PO (15:21)
[2020-06-12 15:36] LABS: Add Manual Diff / Slide Review NO; Basophils Absolute Auto 0 /uL (0-100); Basophils Percent Auto 0.4 % (0-2); Eosinophils Absolute Auto 100 /uL (0-450); Eosinophils Percent Auto 2.1 % (2-4); Hematocrit 44.7 % (41-53); Hemoglobin 15.2 g/dL (13.5-17.5); Lymphocytes Absolute Auto 2900 /uL (1100-4500); Lymphocytes Percent Auto 42.2 % (25-40); Mean Corpuscular HGB Conc 33.9 % (30-36); Mean Corpuscular Hemoglobin 29.2 PG (26-34); Monocytes Absolute Auto 500 /uL (0-900); Neutrophils Absolute Auto 3200 /uL (1500-7000); Neutrophils Percent Auto 47.3 % (50-75); Platelet Count 217 X10^3/uL (150-400); Red Cell Distribution Width 13.8 % (11.6-14.8); White Blood Cell Count 6.8 X10^3/uL (4.5-11.0)
[2020-06-12 15:53] LABS: Alanine Aminotransferase 39 IU/L (<50); Albumin 4.8 g/dL (3.5-5.0); Albumin Globulin Ratio 1.3 (1.0-2.8); Alkaline Phosphatase 79 U/L (38-126); Aspartate Aminotransferase 33 IU/L (17-59); BUN Creatinine Ratio 15.6 (6-22); Bilirubin Total 0.9 mg/dL (0.2-1.3); Blood Urea Nitrogen 12 mg/dL (9-20); Calcium 10.2 mg/dL (8.4-10.2); Carbon Dioxide 31 mmol/L (22-32); Chloride 103 mmol/L (98-107); Creatine Kinase 128 U/L (55-170); Estimated Glomerular Filt Rate > 60.0 mL/min (>60); Globulin 3.8 g/dL (1.7-4.1); Glucose 92 mg/dL (70-100); HEMOLYSIS < 15 (0-50); Lipase 96 U/L (23-300); Sodium 139 mmol/L (137-145); Total Protein 8.6 g/dL (6.3-8.2)
[2020-06-12 16:04] LABS: Troponin I < 0.012 ng/mL (0.01-0.034)
[2020-06-12 16:08] LABS: CKMB % Relative Index 1.1 % (1.5-5.0); Creatine Kinase MB 1.47 ng/mL (<2.37)
== END 2020-06-12 16:59 | disposition home or self-care (01) ==
PROVIDERS: Emergency Provider Nurse Practitioner; PCP Family Medicine
DX: R07.89 Other chest pain (principal); F41.9 Anxiety disorder, unspecified
CPT/HCPCS: 36415; 71045; 80053; 82550; 82553; 83690; 84484; 85025; 93005; 93010; 99283; 99284

== ENCOUNTER → 2021-08-06 08:47 | Outpatient (CLI) | payer OTHER, SELFPAY ==
[2021-08-06 11:17] LABS: HEMOLYSIS < 15 (0-50)
[2021-08-06 11:18] LABS: Alanine Aminotransferase 35 IU/L (<50); Albumin 4.8 g/dL (3.5-5.0); Albumin Globulin Ratio 1.7 (1.0-2.8); Alkaline Phosphatase 64 U/L (38-126); Aspartate Aminotransferase 30 IU/L (17-59); BUN Creatinine Ratio 13.9 (6-22); Bilirubin Total 0.9 mg/dL (0.2-1.3); Blood Urea Nitrogen 11 mg/dL (9-20); Carbon Dioxide 29 mmol/L (22-32); Chloride 104 mmol/L (98-107); Cholesterol 208 mg/dL (140-199); Estimated Glomerular Filt Rate > 60.0 mL/min (>60); Globulin 2.8 g/dL (1.7-4.1); Glucose 101 mg/dL (70-100); HDL Cholesterol 33 mg/dL (40-60); LDL Cholesterol Calculated 146 mg/dL (<100); Sodium 141 mmol/L (137-145); Total Protein 7.6 g/dL (6.3-8.2); Triglycerides 146 mg/dL (35-150)
[2021-08-06 11:43] LABS: TSH w/ Reflex to FT4 1.06 uIU/mL (0.47-4.68)
== END ==
PROVIDERS: PCP Family Medicine; Referring Provider Family Medicine; Visit Provider Family Medicine
DX: E66.01 Morbid (severe) obesity due to excess calories (principal); E78.5 Hyperlipidemia, unspecified; Z68.41 Body mass index [BMI] 40.0-44.9, adult; E03.9 Hypothyroidism, unspecified
CPT/HCPCS: 36415; 80053; 80061; 84443

== ENCOUNTER → 2022-01-21 11:00 | Outpatient (CLI) | payer OTHER, SELFPAY | PROVIDERS: PCP Family Medicine; Referring Provider Urology; Visit Provider Urology | DX: Z53.20 Procedure and treatment not carried out because of patient's decision for unspecified reasons (principal) ==

== ENCOUNTER → 2022-01-22 16:05 | Outpatient (CLI) | payer OTHER, SELFPAY ==
--- NOTE | 2022-01-22 16:08 | DI.US.S_ITS ---
PROCEDURE: US SCROTUM INDICATIONS: Left testis pain question varicocele TECHNIQUE: Real-time scanning was performed of the scrotum and testicles, with image documentation. Color and pulse Doppler interrogation was performed of both testicles. COMPARISON: None. FINDINGS: Right: Testicle is normal in size at 5.6 x 3.2 x 2.2 cm, and homogenous in echotexture. Epididymis is normal in overall size and morphology. Small cyst in the epididymis measuring 0.8 cm. No hydrocele or definite varicoceles. Overlying scrotal skin is normal in thickness. Left: Testicle is normal in size at 4.6 x 2.7 x 2.4 cm, and homogeneous in echotexture. Epididymis is normal in overall size and morphology. Small cyst in the head of the epididymis measuring 0.3 cm. No hydrocele or definite varicoceles. Overlying scrotal skin is normal in thickness. Doppler: Color and pulse Doppler demonstrate normal and symmetric arterial flow in both testicles. No hyperemia within the epididymi. IMPRESSION: 1. Left spermatic cord vessels are at the upper limits of normal measuring 3 mm. Blood flow is prominent with Valsalva. Suspect small left varicocele. 2. No testicular mass. 3. Small epididymal cysts. Dictated by: Marcial Molina M.D. on 01/23/2022 at 8:32 Approved by: Marcial Molina M.D. on 01/23/2022 at 8:38
== END ==
PROVIDERS: PCP Family Medicine; Referring Provider Urology; Visit Provider Urology
DX: N50.3 Cyst of epididymis (principal); N50.812 Left testicular pain
CPT/HCPCS: 76870

== ENCOUNTER → 2022-03-17 09:42 | Outpatient (CLI) | payer OTHER, SELFPAY ==
--- NOTE | 2022-04-03 09:31 | PM.CARDMON.1 ---
Manager Basketball Report Referral & Results Date Patient Seen: 03/17/22 Requesting provider: Catherine Rodriguez Indication: Palpitations Duration of monitoring (days): 8 Diary information: There were 79 patient triggered events and 0 patient diary entries Patient triggered events were variably associated with (within 45 seconds) sinus rhythm and PACs Data: Minimum heart rate was 47 beats per minute at 09:04 on 03/22/2022 Maximum heart rate was 184 beats per minute at 16:54 on 03/23/2022 and was sinus tachycardia Less than 1% of identified beats were ventricular or supraventricular ectopic in origin, which would classify them as rare. There was 1 run of SVT that was 9 beats in duration at 139 beats per minute which might suggest an atrial tachycardia rather than true SVT No pauses of 3 seconds or longer or episodes of atrial fibrillation were identified on this study Impression: 8 day cardiac technologist demonstrating rare PACs and PVCs however PACs appear to be associated with patient events as noted by patient triggers No other significant dysrhythmias identified Clinical correlation suggested
== END ==
PROVIDERS: PCP Family Medicine; Referring Provider Family Medicine; Visit Provider Family Medicine
DX: R00.2 Palpitations (principal); R07.9 Chest pain, unspecified
CPT/HCPCS: 93242; 93248

== ENCOUNTER 2022-08-27 17:06 | Emergency (ER) | payer OTHER, SELFPAY ==
[2022-08-27 17:11] VITALS: BP 129/81; PULSE 74; RESP 16; TEMP 36.3; O2SAT 96; BMI 43.9
== END 2022-08-27 19:05 | disposition left against medical advice (07) ==
PROVIDERS: Emergency Provider Emergency Medicine; PCP Family Medicine
DX: R20.2 Paresthesia of skin (principal)
CPT/HCPCS: 93005; 93010; 99281

== ENCOUNTER → 2022-11-26 07:59 | Outpatient (CLI) | payer OTHER, SELFPAY ==
[2022-11-26 09:53] LABS: Alanine Aminotransferase 34 IU/L (<50); Albumin 4.2 g/dL (3.5-5.0); Albumin Globulin Ratio 1.4 (1.0-2.8); Alkaline Phosphatase 68 U/L (38-126); Aspartate Aminotransferase 28 IU/L (17-59); BUN Creatinine Ratio 15.6 (6-22); Bilirubin Total 0.7 mg/dL (0.2-1.3); Blood Urea Nitrogen 12 mg/dL (9-20); Calcium 9.4 mg/dL (8.4-10.2); Carbon Dioxide 30 mmol/L (22-32); Chloride 101 mmol/L (98-107); Cholesterol 206 mg/dL (140-199); Estimated Glomerular Filt Rate > 60 mL/min (>60); Globulin 2.9 g/dL (1.7-4.1); Glucose 93 mg/dL (70-100); HDL Cholesterol 31 mg/dL (40-60); HEMOLYSIS < 15 (0-50); LDL Cholesterol Calculated 154 mg/dL (<100); Potassium 4.2 mmol/L (3.4-5.1); Sodium 139 mmol/L (137-145); Total Protein 7.1 g/dL (6.3-8.2); Triglycerides 106 mg/dL (35-150)
[2022-11-26 10:25] LABS: TSH w/ Reflex to FT4 1.54 uIU/mL (0.47-4.68)
== END ==
PROVIDERS: PCP Family Medicine; Referring Provider Family Medicine; Visit Provider Family Medicine
DX: E03.9 Hypothyroidism, unspecified (principal); E66.01 Morbid (severe) obesity due to excess calories; E78.5 Hyperlipidemia, unspecified; Z68.41 Body mass index [BMI] 40.0-44.9, adult
CPT/HCPCS: 36415; 80053; 80061; 84443

== ENCOUNTER → 2023-04-09 09:25 | Outpatient (CLI) | payer OTHER, SELFPAY ==
[2023-04-09 10:37] LABS: Add Manual Diff / Slide Review NO; Basophils Absolute Auto 0 /uL (0-100); Basophils Percent Auto 0.5 % (0-2); Eosinophils Absolute Auto 200 /uL (0-450); Eosinophils Percent Auto 2.9 % (2-4); Hemoglobin 14.3 g/dL (13.5-17.5); Lymphocytes Absolute Auto 2700 /uL (1100-4500); Lymphocytes Percent Auto 49.4 % (25-40); Mean Corpuscular HGB Conc 34.1 % (30-36); Mean Corpuscular Hemoglobin 29.2 PG (26-34); Mean Corpuscular Volume 85.7 fL (80-100); Monocytes Absolute Auto 400 /uL (0-900); Monocytes Percent Auto 7.3 % (3-14); Neutrophils Absolute Auto 2200 /uL (1500-7000); Neutrophils Percent Auto 39.9 % (50-75); Platelet Count 206 X10^3/uL (150-400); Red Cell Distribution Width 14.2 % (11.6-14.8); White Blood Cell Count 5.5 X10^3/uL (4.5-11.0)
[2023-04-09 12:42] LABS: Hemoglobin A1C% w Est Avg Glu 5.3 % (4.0-6.0)
== END ==
PROVIDERS: PCP Family Medicine; Referring Provider Family Medicine; Visit Provider Family Medicine
DX: R53.82 Chronic fatigue, unspecified (principal); E66.01 Morbid (severe) obesity due to excess calories
CPT/HCPCS: 36415; 83036; 85025

== ENCOUNTER → 2024-03-03 07:52 | Outpatient (CLI) | payer OTHER, MEDICAID, SELFPAY | PROVIDERS: PCP Family Medicine; Referring Provider Family Medicine; Visit Provider Family Medicine | DX: R00.2 Palpitations (principal) | CPT/HCPCS: 93246; 93248 ==

== ENCOUNTER → 2024-04-18 09:56 | Outpatient (CLI) | payer OTHER, MEDICAID, SELFPAY ==
[2024-04-18 10:54] LABS: Alanine Aminotransferase 32 IU/L (<50); Albumin 4.6 g/dL (3.5-5.0); Albumin Globulin Ratio 1.8 (1.0-2.8); Alkaline Phosphatase 67 U/L (38-126); Aspartate Aminotransferase 28 IU/L (17-59); BUN Creatinine Ratio 20.3 (6-22); Bilirubin Total 0.7 mg/dL (0.2-1.3); Blood Urea Nitrogen 16 mg/dL (9-20); Calcium 9.9 mg/dL (8.4-10.2); Carbon Dioxide 27 mmol/L (22-32); Chloride 103 mmol/L (98-107); Cholesterol 269 mg/dL (140-199); Estimated Glomerular Filt Rate > 60 mL/min (>60); Globulin 2.6 g/dL (1.7-4.1); Glucose 103 mg/dL (70-100); HDL Cholesterol 35 mg/dL (40-60); HEMOLYSIS < 15 (0-50); LDL Cholesterol Calculated 197 mg/dL (<100); Potassium 4.8 mmol/L (3.4-5.1); Sodium 137 mmol/L (137-145); Total Protein 7.2 g/dL (6.3-8.2); Triglycerides 184 mg/dL (35-150)
[2024-04-18 15:16] LABS: HIV 1 & 2 Ab/Ag 4th Gen Combo NEGATIVE (NEGATIVE); Hep C Virus Ab w/Reflex Quant NEGATIVE s/c (NEGATIVE)
== END ==
PROVIDERS: PCP Family Medicine; Referring Provider Family Medicine; Visit Provider Family Medicine
DX: E66.01 Morbid (severe) obesity due to excess calories (principal); Z68.41 Body mass index [BMI] 40.0-44.9, adult; R00.2 Palpitations; E78.5 Hyperlipidemia, unspecified; Z11.59 Encounter for screening for other viral diseases; Z11.4 Encounter for screening for human immunodeficiency virus [HIV]
CPT/HCPCS: 36415; 80053; 80061; 86803; 87389

== ENCOUNTER 2025-01-06 10:16 | Emergency (ER) | payer OTHER, SELFPAY ==
[2025-01-06 10:23] VITALS: BP 148/77; PULSE 68; O2SAT 97
[2025-01-06 10:25] VITALS: BP 148/77; PULSE 63; RESP 18; TEMP 36.7; O2SAT 95; BMI 47.4
[2025-01-06 10:30] VITALS: BP 125/79; PULSE 70; RESP 17; O2SAT 94
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
[2025-01-06 11:00] VITALS: BP 138/82; PULSE 70; RESP 16; O2SAT 94
[2025-01-06 11:30] VITALS: BP 146/91; PULSE 62; RESP 15; O2SAT 95
== END 2025-01-06 11:40 | disposition home or self-care (01) ==
PROVIDERS: Emergency Provider Family Medicine; PCP Family Medicine
DX: S50.12XA Contusion of left forearm, initial encounter (principal); V19.9XXA Pedal cyclist (driver) (passenger) injured in unspecified traffic accident, initial encounter
CPT/HCPCS: 73090; 99283

== ENCOUNTER → 2025-01-17 10:24 | Outpatient (CLI) | payer OTHER, SELFPAY ==
--- NOTE | 2025-01-17 10:25 | DI.RAD.S_ITS ---
PROCEDURE: XR FOREARM LT 2V INDICATIONS: pain mid forearm. compare to previous TECHNIQUE: 2 views of the forearm were acquired. COMPARISON: [facility], CR, XR FOREARM LT 2V, 01/06/2025, 10:16. FINDINGS: Bones: No fractures or dislocations. No periosteal reaction. No suspicious bony lesions. Soft tissues: No suspicious soft tissue calcifications or masses. IMPRESSION: No acute bony abnormality. Dictated by: Marcial Molina M.D. on 01/17/2025 at 23:23 Approved by: Marcial Molina M.D. on 01/17/2025 at 23:26
== END ==
PROVIDERS: PCP Family Medicine; Referring Provider Family Medicine; Visit Provider Family Medicine
DX: S50.12XA Contusion of left forearm, initial encounter (principal); X58.XXXA Exposure to other specified factors, initial encounter
CPT/HCPCS: 73090

== ENCOUNTER → 2025-03-28 07:10 | Outpatient (CLI) | payer OTHER, SELFPAY ==
[2025-03-28 07:59] LABS: Cholesterol 202 mg/dL (140-199); HDL Cholesterol 32 mg/dL (40-60); Triglycerides 168 mg/dL (35-150)
== END ==
PROVIDERS: PCP Family Medicine; Referring Provider Family Medicine; Visit Provider Family Medicine
DX: E78.2 Mixed hyperlipidemia (principal); E66.01 Morbid (severe) obesity due to excess calories; Z68.41 Body mass index [BMI] 40.0-44.9, adult; E03.9 Hypothyroidism, unspecified
CPT/HCPCS: 36415; 80061

== ENCOUNTER 2025-07-18 12:38 | Emergency (ER) | payer BC, SELFPAY ==
[2025-07-18] VITALS (7 sets, daily range): BP systolic 119–163; BP diastolic 66–102; PULSE 59–86; RESP 15–23; TEMP 36.7; O2SAT 95–98; BMI 50.3
--- OUTSIDE RECORDS SUMMARY | 2025-07-18 12:40 | XMS_ITS | Clinical Summary ---
Author Organization [facility] Address [address] [place] [address] Care Team Providers Care Natural Resources Faculty Member Name Role Phone Selected, No Pcp Primary Care Provider Unavailab le Selected, No Pcp Unavailable Unavailable Allergies Active Allergy Reactions Criticality Noted Date Comments Ezetimibe 07/06/2024 Other Reaction(s): Other (see comments) Chest pains Medications atorvastatin (LIPITOR) 80 MG Tab Take 1 Tablet by mouth once daily. Active clonazePAM (KLONOPIN) 1 MG Tab Take 1 Tablet by mouth once daily. Active leVOTHYroxine (SYNTHROID) 25 MCG Tab Take 1 Tablet by mouth. 04/13/2024 Active propranolol (INDERAL) 20 MG Tab Take 1 Tablet by mouth twice daily. Active sertraline (ZOLOFT) 100 MG Tab take 2 tablets by mouth daily Active Active Problems No known active problems Social History Tobacco Use Types Packs/Day Years Used Date Smoking Tobacco: Former Cigarettes 0 Q uit: 2017 Smokeless Tobacco: Former Tobacco Cessation:Counseling Given: Not Answered Comments:Chew over 10 yrs Alcohol Use Standard Drinks/Week Comments Never 0 (1 standard drink = 0.6 oz pur e alcohol) Sex and Gender Information Value Date Recorded Sex Assigned at Male 10/19/2024 1:03 PM PDT Legal Sex Male 4:59 PM PDT Gender Identity Male 10/19/2024 1:03 PM PDT Sexual Orientation Straight 10/19/2024 1: 03 PM PDT Plan of Treatment Health Maintenance Due Date Last Done Comments DEN: Dental Prophylaxis 1990 Depression Screening 1990 SCRN: FOR HIV USPSTF ROUTINE (15-65 YEARS) 2005 [facility] SCRN: HIV-UNIVERSAL SCRN 2005 SCRN: FOR HEPATITIS C ROUTINE (18-79 Years) 2008 IMM: HEPATITIS B (1 of 3 - 19+ 3-dose series) 2009 IMM: HPV (1 - 3-dose SCDM series) 2017 IMM: DTAP/TDAP/TD (2 - Td or Tdap) 12/22/2023 12/21/2013 IMM: INFLUENZA (AGE > 6 MONTHS) (#1) 03/20/2025 04/23/2022, 05/02/2021, 05/29/2020, Additional history exists DEN: Dental Oral Exam 03/15/2026 03/14/2025 IMM: RSV ( patients and Patients AGE > 60 YEARS OLD) (1 - 1-dose 75+ series) 2065 IMM: HEPATITIS A Aged Out No longer e ligible based on patient's age to complete this topic IMM: MENINGOCOCCAL ACWY Aged Out No l onger eligible based on patient's age to complete this topic IMM: Pneumococcal Combined Aged Out N o longer eligible based on patient's age to complete this topic IMM: RSV (AGE < 20 MONTHS) Aged Out N o longer eligible based on patient's age to complete this topic Procedures Procedure Name Priority Date/Time Associated Diagnosis Comments P COMPREHENSIVE ORAL EVALUATION - NEW OR ESTABLISHED PATIENT Routine 03/14/2025 4:00 PM PDT Encounter for routine dental examination from Last 3 Months or Most Recently Relevant to Health Maintenance Insurance DENTAL MCAID Care Teams Natural Resources Faculty Member Relationship Specialty Start Date End Date Selected, No Pcp PCP - General PCP 10/19/24 Selected, No Pcp Dentistry 10/19/24
--- NOTE | 2025-07-18 13:02 | DI.RAD.S_ITS ---
PROCEDURE: XR CHEST 1V INDICATIONS: Chest Pain TECHNIQUE: One view of the chest was acquired. COMPARISON: [facility], CR, XR CHEST 1V, 06/12/2020, 15:12. [facility], CR, XR CHEST 2V, 05/28/2018, 15:19. FINDINGS AND IMPRESSION: No airspace consolidation or pleural effusion on this single view study. Heart size is at the upper limit of normal. Unchanged mediastinal contours. Unremarkable osseous structures. Dictated by: Marques Hameed M.D. on 07/18/2025 at 14:18 Approved by: Marques Hameed M.D. on 07/18/2025 at 14:18
--- NOTE | 2025-07-18 13:08 | EKG_ITS ---
[facility] [address] [address] Test Date: 2025-07-18 Pat Name: Arie Chowdhury Department: [facility] Room: Gender: Male Can Crimper: SYDNEY : 1990 Requested By: Order Number: [id number] Reading MD: Nathan Hutchison Measurements Intervals [place] Rate: 74 P: 24 VA: 136 QRS: -15 QRSD: 90 T: 36 QT: 380 QTc: 421 Interpretive Statements Normal sinus rhythm Minimal voltage criteria for LVH, may be normal variant ( R in aVL ) Electronically Signed On 07-19-2025 15:05:27 PST by Nathan Hutchison
[2025-07-18 13:25] LABS: Add Manual Diff / Slide Review NO; Hematocrit 43.2 % (41-53); Hemoglobin 14.7 g/dL (13.5-17.5); Lymphocytes Absolute Auto 2200 /uL (1100-4500); Mean Corpuscular HGB Conc 34.1 % (30-36); Mean Corpuscular Hemoglobin 28.9 PG (26-34); Mean Corpuscular Volume 84.6 fL (80-100); Platelet Count 229 X10^3/uL (150-400)
[2025-07-18 13:31] LABS: INR 1.0 (0.9-1.3); Prothrombin Time 11.0 SECONDS (9.4-12.5)
[2025-07-18 13:34] LABS: PTT Partial Thromboplastin Tim 29 SECONDS (25.1-36.5)
[2025-07-18 13:41] LABS: Alanine Aminotransferase 40 IU/L (<50); Albumin 4.8 g/dL (3.5-5.0); Albumin Globulin Ratio 1.5 (1.0-2.8); Alkaline Phosphatase 73 U/L (38-126); Blood Urea Nitrogen 10 mg/dL (9-20); Calcium 9.7 mg/dL (8.4-10.2); Carbon Dioxide 25 mmol/L (22-32); Chloride 105 mmol/L (98-107); Creatine Kinase 90 U/L (55-170); Estimated Glomerular Filt Rate > 60 mL/min (>60); Globulin 3.3 g/dL (1.7-4.1); Glucose 119 mg/dL (70-99); HEMOLYSIS < 15 (0-50); Lipase 78 U/L (23-300); Magnesium 1.8 mg/dL (1.6-2.3); Potassium 4.2 mmol/L (3.4-5.1); Sodium 139 mmol/L (137-145); Total Protein 8.1 g/dL (6.3-8.2)
[2025-07-18 13:52] LABS: NT-proBNP (BNP-Adult 18+) < 20 pg/mL (<125); Troponin I < 0.012 ng/mL (0.01-0.034)
--- NOTE | 2025-07-18 15:16 | PC.NURSE ---
Patient declined an IV and wants to see the provider before having an Iv placed. Pt was explained the protocol for placing IV for chest pain during a controlled time instead of waiting for placement for when it's a crisis. Placement still declined IV.
--- NOTE | 2025-07-18 15:19 | ED.CHESTPAIN ---
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 Denies any nausea, vomiting, diaphoresis, breath, dyspnea on exertion, leg pain, leg swelling, back pain, abdominal pain. Other than what is stated 14 point review of system is negative Related Data Home Medications ?Medication ?Instructions ?Recorded ?Confirmed cephalexin 500 mg capsule 500 mg PO Q8H 03/28/25 03/28/25 Previous Rx's ?Medication ?Instructions ?Recorded sertraline 100 mg tablet See Rx Instructions .Route 10/17/24 .COMPLEX #180 tabs atorvastatin 80 mg tablet See Rx Instructions .Route 11/17/24 .COMPLEX #90 tabs ezetimibe 10 mg tablet (Zetia) 10 mg PO DAILY cholesterol #100 12/27/24 tabs levothyroxine 25 mcg tablet 25 mcg PO DAILY #90 tabs 12/27/24 naproxen 500 mg tablet 500 mg PO BID PRN pain #60 tabs 03/22/25 oxycodone-acetaminophen 7.5 mg-325 1 tab PO Q6H PRN pain #20 tabs 03/22/25 mg tablet propranolol 20 mg tablet See Rx Instructions .Route 03/22/25 .COMPLEX #180 tabs clonazepam 1 mg tablet 1 mg PO DAILY #30 tabs 03/28/25 tamsulosin 0.4 mg capsule 0.4 mg PO DAILY #90 caps 06/26/25 Allergies Allergy/AdvReac Type Severity Reaction Status Date / Time No Known Drug Allergies Allergy Verified 07/18/25 13:03 Review of Systems Review of Systems ROS Unobtainable: All systems reviewed & are unremarkable except as noted in HPI and below Patient History Medical History (Updated 07/18/25 @ 16:52 by Terrell Jernigan DO) IFG (impaired fasting glucose) GASPER (obstructive sleep apnea) Erectile dysfunction Male circumcision Morbid obesity with BMI of 40.0-44.9, adult Hypothyroidism (06/17/17) Hyperlipidemia Family History Grandfather Cancer Grandmother Cancer Family/Other Diabetes mellitus Mother Gout Hypertension Thyroid disease Other Family history of premature CAD Social History marital status: unmarried,single number of children: 0 education level: high school occupational status: employed Smoking Status: Current some day smoker alcohol intake: current substance use type: does not use Type(s) of exercise: aerobic frequency: other Smoking Status: Current some day smoker tobacco type: cigarettes alcohol intake frequency: holidays/special occasions only Exam Narrative Exam Narrative: GENERAL: [35] year old patient appears stated age. Well-developed patient, in mild distress. HEAD: Atraumatic. Normocephalic. EYES: Pupils equal round and reactive. Extraocular motions intact. No scleral icterus. No injection or drainage. ENT: Nose without bleeding, purulent drainage. Throat without erythema, tonsillar hypertrophy or exudate. Airway patent. NECK: Trachea midline. Non tender CARDIOVASCULAR: Regular rate and rhythm without murmurs, gallops, or rubs. RESPIRATORY: Clear to auscultation. Breath sounds equal bilaterally. No wheezes, rales, or rhonchi. GASTROINTESTINAL: Abdomen soft, non-tender, nondistended. EXTREMITIES: No edema or joint tenderness. BACK: Nontender without deformity or crepitance. No flank tenderness. NEURO: AOx3. SKIN: No rash or erythema of visible areas Initial Vital Signs Initial Vital Signs: Vital Signs Temperature 98.0 F 07/18/25 13:03 Pulse Rate 86 07/18/25 13:03 Respiratory Rate 17 07/18/25 13:03 Blood Pressure 163/102 H 07/18/25 13:03 Pulse Oximetry 96 07/18/25 13:03 Oxygen Delivery Method Room Air 07/18/25 13:03 Scores HEART Score Heart Score history: Slightly Suspicious Heart Score EKG: Normal Heart Score Age: < 45 years old Heart Score risk factors: No known risk factors Heart Score troponin: < or = to normal limit Heart Score Total: 0 Course Orders Ordered: ED Orders 07/18/25 13:02 XR chest 1V Stat EKG-12 Lead Stat 07/18/25 13:15 Complete Blood Count AUTO DIFF Stat Comprehensive Metabolic Panel Stat D Dimer Stat Lipase Stat Magnesium Stat NT-proBNP (BNP-Adult 18+) Stat PTT Partial Thromboplastin Edwin Stat Prothrombin Time INR Stat Troponin & CK Cardiac Panel Stat 07/18/25 15:24 Trop I [Troponin I] Stat Discontinued Medications Aspirin (Aspirin 81 Mg Chew Tab) 324 mg PO NOW ONE Stop: 07/18/25 13:03 Vital Signs Vital signs: Vital Signs - 8 hr 07/18/25 13:03 07/18/25 15:12 07/18/25 15:30 Temperature 98.0 F Pulse Rate 86 76 Respiratory Rate 17 23 Blood Pressure 163/102 H 130/67 Pulse Oximetry 96 97 Oxygen Delivery Method Room Air 07/18/25 15:30 07/18/25 16:00 07/18/25 16:00 Temperature Pulse Rate 63 68 Respiratory Rate 21 15 Blood Pressure 119/68 Pulse Oximetry 96 95 Oxygen Delivery Method MDM - Chest Pain Lab Data 07/18/25 13:15 07/18/25 13:15 Labs: Lab Results 07/18/25 07/18/25 Range/Units 13:15 15:24 WBC 5.5 (4.5-11.0) X10^3/uL RBC 5.10 (4.5-5.9) X10^6/uL Hgb 14.7 (13.5-17.5) g/dL Hct 43.2 (41-53) % MCV 84.6 (80-100) fL MCH 28.9 (26-34) PG MCHC 34.1 (30-36) % RDW 13.7 (11.6-14.8) % Plt Count 229 (150-400) X10^3/uL Neut % (Auto) 48.6 L (50-75) % Lymph % (Auto) 40.7 H (25-40) % Stodd[place] % (Auto) 6.2 (3-14) % Eos % (Auto) 3.5 (2-4) % Baso % (Auto) 1.0 (0-2) % Neut # (Auto) 2700 (2784-3165) /uL Lymph # (Auto) 2200 (0669-1422) /uL Stoddard # (Auto) 300 (0-900) /uL Eos # (Auto) 200 (0-450) /uL Baso # (Auto) 100 (0-100) /uL PT 11.0 (9.4-12.5) SECONDS INR 1.0 (0.9-1.3) APTT 29 (25.1-36.5) SECONDS D-Dimer 296 (<500) ng/ml Sodium 139 (137-145) mmol/L Potassium 4.2 (3.4-5.1) mmol/L Chloride 105 (98-107) mmol/L Carbon Dioxide 25 (22-32) mmol/L BUN 10 (9-20) mg/dL Creatinine 0.65 L (0.66-1.25) mg/dL Estimated GFR > 60 (>60) mL/min BUN/Creatinine Ratio 15.4 (6-22) Glucose 119 H (70-99) mg/dL Calcium 9.7 (8.4-10.2) mg/dL Magnesium 1.8 (1.6-2.3) mg/dL Total Bilirubin 0.7 (0.2-1.3) mg/dL AST 35 (17-59) IU/L ALT 40 (<50) IU/L Alkaline Phosphatase 73 (38-126) U/L Total Creatine Kinase 90 (55-170) U/L Troponin I < 0.012 < 0.012 (0.01-0.034) ng/mL NT-Pro-B Natriuret Pep < 20 (<125) pg/mL Total Protein 8.1 (6.3-8.2) g/dL Albumin 4.8 (3.5-5.0) g/dL Globulin 3.3 (1.7-4.1) g/dL Albumin/Globulin Ratio 1.5 (1.0-2.8) Lipase 78 (23-300) U/L Imaging Data Chest x-ray: Radiologist's Impression: [address] [address] XRay Report Signed Patient: Arie Chowdhury MR#: [id number] : 1990 Acct:[id number] Age/Sex: 35 / M Date of Service: 07/18/25 Loc: ED Accession Number: [id number] Procedure: XR chest 1V Ordering Provider: Valerie Patel D.O. PROCEDURE: XR CHEST 1V INDICATIONS: Chest Pain TECHNIQUE: One view of the chest was acquired. COMPARISON: [facility], CR, XR CHEST 1V, 06/12/2020, 15:12. [facility], CR, XR CHEST 2V, 05/28/2018, 15:19. FINDINGS AND IMPRESSION: No airspace consolidation or pleural effusion on this single view study. Heart size is at the upper limit of normal. Unchanged mediastinal contours. Unremarkable osseous structures. Dictated by: Marques Hameed M.D. on 07/18/2025 at 14:18 Approved by: Marques Hameed M.D. on 07/18/2025 at 14:18 ECG Data Interpretation: NSR HR 74 HI 136 QRS [address]-t wave change MDM Narrative Medical decision making narrative: All labwork, vital signs, orthopedic physical therapist note, med list, previous ER visits, all imaging studies reviewed and all ER visits reviewed. Heart score 0. 2 sets troponin nml. EKG NSR no ischemic changes. Chest x-ray showed no acute process. Differential diagnosis PE, chest wall pain, pneumothorax, GERD, anxiety, STEMI NSTEMI. Patient has follow up appointment with is PCP Thursday Discharge Plan Departure Patient Disposition: Home Clinical Impression: Chest pain Instructions: DI for Chest Pain Activity Restrictions/Additional Instructions: Return with new or worsening symptoms. Follow up with PCP on Thursday appointment Prescriptions: No Action sertraline 100 mg tablet See Rx Instructions .ROUTE .COMPLEX Qty: 180 2RF Dose Instruction: TAKE 2 TABLETS BY MOUTH DAILY Rx Instructions: TAKE 2 TABLETS BY MOUTH DAILY atorvastatin 80 mg tablet See Rx Instructions .ROUTE .COMPLEX Qty: 90 2RF Dose Instruction: TAKE 1 TABLET BY MOUTH DAILY Rx Instructions: TAKE 1 TABLET BY MOUTH DAILY propranolol 20 mg tablet See Rx Instructions .ROUTE .COMPLEX Qty: 180 3RF Dose Instruction: TAKE 1 TABLET BY MOUTH TWICE DAILY Rx Instructions: TAKE 1 TABLET BY MOUTH TWICE DAILY oxycodone-acetaminophen 7.5-325 mg tablet 1 tab PO Q6H PRN (Reason: pain) Qty: 20 0RF naproxen 500 mg tablet 500 mg PO BID PRN (Reason: pain) Qty: 60 11RF Rx Instructions: with food tamsulosin 0.4 mg capsule 0.4 mg PO DAILY Qty: 90 0RF ezetimibe [Zetia] 10 mg tablet 10 mg PO DAILY Qty: 100 3RF levothyroxine 25 mcg tablet 25 mcg PO DAILY Qty: 90 3RF cephalexin 500 mg capsule 500 mg PO Q8H clonazepam 1 mg tablet 1 mg PO DAILY Qty: 30 5RF Patient Comments: unsure if taken today. 02/15/19 Referrals: Heather Christopher DO [Primary Care Provider, Family Practice] Stand Alone Forms: Patient Portal/API
[2025-07-18 15:56] LABS: Troponin I < 0.012 ng/mL (0.01-0.034)
== END 2025-07-18 17:16 | disposition home or self-care (01) ==
PROVIDERS: Emergency Medicine; Emergency Provider Family Medicine; PCP Family Medicine
DX: R07.89 Other chest pain (principal)
CPT/HCPCS: 36415; 71045; 80053; 82550; 83690; 83735; 83880; 84484; 85025; 85379; 85610; 85730; 93005; 99283; 99284